=== PATIENT | female | born 1995 | race Caucasian/White ===

== ENCOUNTER 2017-11-26 13:38 | Emergency (ER) | payer OTHER ==
[2017-11-26 14:42] LABS: URINE HCG POC HCG NEGATIVE (Negative)
== END 2017-11-26 16:15 | disposition home or self-care (01) ==
LOC: ER 13:38
DX: S00.33XA Contusion of nose, initial encounter (principal); S00.12XA Contusion of left eyelid and periocular area, initial encounter; S00.11XA Contusion of right eyelid and periocular area, initial encounter; Y04.8XXA Assault by other bodily force, initial encounter; Y93.89 Activity, other specified; Y99.8 Other external cause status; Y92.89 Other specified places as the place of occurrence of the external cause
CPT/HCPCS: 70450; 70486; 81025; 99284-25